=== PATIENT | female | born 1980 | race Caucasian/White ===

== ENCOUNTER 2024-08-29 03:01 | Emergency (ER) | payer OTHER ==
[~2024-08-29] VITALS: Ht 152.4 cm; Wt 53.1 kg
[2024-08-29] MEDS ORDERED: MAG HYDROX/AL HYDROX/SIMETH 30 ML UDC ONE (03:43)
[2024-08-29] MEDS ORDERED: ONDANSETRON HCL/PF 4 MG/2 ML VIAL ONE (03:43)
[2024-08-29 03:44] LABS: APPEARANCE,URINE CLEAR (CLEAR); BILIRUBIN,URINE NEGATIVE (NEGATIVE); BLOOD, URINE NEGATIVE Ery/uL (NEGATIVE); COLOR,URINE YELLOW (YELLOW); KETONES,URINE NEGATIVE (NEGATIVE); LEUKOCYTE ESTERASE ,URINE NEGATIVE (NEGATIVE); NITRITE, URINE NEGATIVE (NEGATIVE); PH,URINE 7.5 (5.0-8.0); PREGNANCY TEST URINE QUAL NEGATIVE (NEGATIVE); PROTEIN,URINE 1+ mg/dl (NEGATIVE); UGLUCOSE NEGATIVE (NEGATIVE); UROBILINOGEN,URINE 0.2 EU/dL (0.2)
[2024-08-29] MEDS: ONDANSETRON HCL/PF 4 MG/2 ML VIAL IVP ONE (03:48)
[2024-08-29] MEDS: MAG HYDROX/AL HYDROX/SIMETH 30 ML UDC PO ONE (03:48)
[2024-08-29] MEDS: IV NS 0.9% 1,000 ML BAG IV ONE (03:48)
[2024-08-29 03:54] LABS: BASOPHILS % (AUTO) 0.4 % (0.0-2.0); HEMATOCRIT 31 % (33-45); HEMOGLOBIN 9.7 g/dL (11.5-14.8); LYMPHOCYTES # (AUTO) 0.9 K/uL (0.8-4.8); LYMPHOCYTES % (AUTO) 8.7 % (20.0-44.0); MEAN CORPUSCULAR HEMOGLOBIN 21 PG (26.0-33.0); MEAN CORPUSCULAR HGB CONC 31 g/dl (31.0-36.0); MEAN CORPUSCULAR VOLUME 69 fL (82-100); MONOCYTES # (AUTO) 0.2 K/uL (0.1-1.30); MONOCYTES % (AUTO) 2.4 % (2.0-12.0); NEUTROPHILS # (AUTO) 9.2 K/uL (1.8-8.9); NEUTROPHILS % (AUTO) 88.5 % (43.0-81.0); PLATELET COUNT (AUTO) 153 K/uL (150-450); RED BLOOD CELL COUNT(AUTO) 4.54 MIL/uL (4.0-5.2); RED CELL DISTRIBUTION WIDTH 19.4 % (11.5-15.0); WHITE BLOOD COUNT (AUTO) 10.4 K/uL (4.3-11.0)
[2024-08-29 03:54] LABS: BACTERIA,URINE Many /HPF (None Seen); SQUAMOUS EPITHELIAL CELL,UR Many /HPF (None Seen)
[2024-08-29 03:55] LABS: ADD URINE CULTURE YES
[2024-08-29] MEDS ORDERED: FERR325T23 PO (04:07)
[2024-08-29] MEDS ORDERED: ONDA4TAB11 PO (04:07)
[2024-08-29] MEDS ORDERED: FAMO20TA8 PO (04:07)
[2024-08-29 04:13] LABS: ALBUMIN 3.7 g/dL (3.4-5.0); BILIRUBIN,DIRECT 0.1 mg/dL (0.0-0.2); BILIRUBIN,TOTAL 0.2 mg/dL (0.2-1.0); CALCIUM, SERUM 8.5 mg/dL (8.5-10.1); CREATININE 0.6 mg/dL (0.6-1.3); POTASSIUM 3.9 mmol/L (3.5-5.1); TOTAL PROTEIN, SERUM 7.4 g/dL (6.4-8.2)
[2024-08-29 05:36] VITALS: BP 122/81; TEMP 98.7; O2SAT 97
== END 2024-08-29 05:36 | disposition home or self-care (01) ==
LOC: ER 03:06
DX: D50.9 Iron deficiency anemia, unspecified (principal); R11.2 Nausea with vomiting, unspecified; R19.7 Diarrhea, unspecified; R10.84 Generalized abdominal pain; Z86.018 Personal history of other benign neoplasm
CPT/HCPCS: 99283; 96374; 96361; 85025; 80048; 87086; 83690; 80076; 84703; 81001; 36415; J2405; J7030